=== PATIENT | male | born 1995 | race African-American/Black ===

== ENCOUNTER 2021-06-09 23:40 | Emergency (ER) | payer BC | END 2021-06-10 00:18 | disposition home or self-care (01) | LOC: ERS 23:40 | DX: S61.211A Laceration without foreign body of left index finger without damage to nail, initial encounter (principal); E03.9 Hypothyroidism, unspecified; Z79.890 Hormone replacement therapy; W26.0XXA Contact with knife, initial encounter; Y93.G3 Activity, cooking and baking | CPT/HCPCS: 99282 ==